=== PATIENT | male | born 1930 | race Caucasian/White ===

== ENCOUNTER 2018-01-14 12:38 | Outpatient (CLI) | payer OTHER ==
[~2018-01-14 12:38] MED LIST: ASPI-611 PO; CHOL10002 PO; DOXA8TAB79 PO; FURO-150 PO; OXYB5TAB29 PO; TERB250T85 PO; VERA240C2 PO
[2018-01-14 13:20] LABS: TOTAL HEMOGLOBIN 13.1 G/dl (14.0-18.0)
[2018-01-14] MEDS ORDERED: albuterol 2.5 MG/3 ML nebule NEB PRN (13:40)
== END 2018-01-14 23:59 | disposition home or self-care (01) ==
LOC: RT 12:38
PROVIDERS: ATTEND Internal Medicine
DX: J44.1 Chronic obstructive pulmonary disease with (acute) exacerbation (principal); I10 Essential (primary) hypertension; R06.02 Shortness of breath; Z87.891 Personal history of nicotine dependence
CPT/HCPCS: 85018; 94060; 94640; 94727; 94729; 94760